=== PATIENT | female | born 1955 | race Caucasian/White ===

== ENCOUNTER → 2017-09-02 | Outpatient (CLI) | payer OTHER ==
[~2017-09-02] MED LIST: ACE3 PO; IBUP200C71 PO; KET10 PO; NONE CURRENTLY; PER PO
== END ==
LOC: MAMO 03:41
PROVIDERS: ATTEND Radiology Radiation Oncology
DX: Z02.9 Encounter for administrative examinations, unspecified (principal)

== ENCOUNTER → 2017-09-13 | Outpatient (CLI) | payer OTHER ==
--- NOTE | 2017-09-14 09:30 | RADIOLOGY IMAGING REPORT ---
FACILITY: [facility] PATIENT NAME: PAUL MARISCAL : [id number] MR: [id number] V: [id number] EXAM DATE: ORDERING PHYSICIAN: JACEY ROUSSEAU TECHNOLOGIST: Karolina Zhong PROCEDURE:BILATERAL DIGITAL SCREENING MAMMOGRAM WITH CAD ASSISTED INTERPRETATION & 3D BREAST TOMOSYNTHYSIS COMPARISON:Prior mammograms dated 09/01/2016, 08/27/2015, 07/30/14, 08/03/13, 01/30/13, 06/14/12 INDICATIONS:SCREENING FINDINGS: Moderately dense heterogeneous fibroglandular tissue is seen throughout the breasts. The parenchymal pattern has remained stable when allowing for difference in mammographic technique & patient positioning. There is an area of postsurgical scarring with architectural distortion in the 9 o'clock position of the right breast that has remained stable. There is no evidence of malignant appearing mass, malignant appearing calcification or secondary sign of malignancy in either breast. DIAGNOSTIC CATEGORY 2--BENIGN FINDING. RECOMMENDATIONS: ROUTINE MAMMOGRAM AND CLINICAL EVALUATION. IMPRESSION: BIRADS 2: Benign finding 1. No significant abnormality is seen Dictated by: Karla Menon M.D. on 09/13/2017 at 13:55 Transcribed by: MARC on 09/13/2017 at 14:18 Approved by: Karla Menon M.D. on 09/14/2017 at 8:38 [facility]
== END ==
LOC: MAMO 01:26
PROVIDERS: ATTEND Radiology Radiation Oncology
DX: Z12.31 Encounter for screening mammogram for malignant neoplasm of breast (principal)
CPT/HCPCS: 77063; 77067

== ENCOUNTER 2017-09-20 12:00 | Outpatient (RCR) | payer OTHER | END 2017-10-04 15:04 | disposition home or self-care (01) | LOC: RAON 12:00 | PROVIDERS: ATTEND Radiology Radiation Oncology | DX: Z85.3 Personal history of malignant neoplasm of breast (principal); Z92.3 Personal history of irradiation | CPT/HCPCS: 99212 ==

== ENCOUNTER 2018-08-24 08:56 | Outpatient (RCR) | payer OTHER ==
[~2018-08-24 08:56] MED LIST changes: +IBUP-136 PO; -IBUP200C71 PO
[2018-08-24 09:20] VITALS: BP 122/88
[2018-08-24] MEDS ORDERED: MULT1TAB64 PO (09:27)
[2018-08-24] MEDS ORDERED: CHOL10005 PO (09:27)
--- NOTE | 2018-08-25 21:22 | ONCOLOGY FOLLOW UP NOTE ---
EVENT DATE: August 24, 2018 CHIEF COMPLAINT Followup for DCIS. HISTORY OF PRESENT ILLNESS Patient is a 63-year-old female who was seen today in one-month followup. 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 She underwent lumpectomy, followed by radiation, completed August 2011. Overall, she feels well. She denies any significant arthralgias. Weight is stable. She would like to exercise more, but feels she is managing without issue. She describes some issues with insomnia and plans to follow up with Dr. Cano about this. 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 Tumor was ER negative, MA negative, HER2/joanna 1+. Underwent wide excision with no residual DCIS identified on 06/29/11. Completed external beam radiation on 08/25/11. MEDICAL HISTORY DCIS May 2011. SURGICAL HISTORY Right lumpectomy 06/29/11. FAMILY HISTORY Mother had colon cancer at age 37. Maternal grandmother had breast cancer. SOCIAL HISTORY Patient is . They have two grown sons. 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 She has never smoked. She drinks occasionally. MEDICATIONS Ibuprofen p.r.n. ALLERGIES No known drug allergies. REVIEW OF SYSTEMS A 12-point review of systems is performed and is negative except as stated above. PHYSICAL EXAMINATION VITAL SIGNS: Blood pressure 122/88, pulse 70, respirations 12, temp 97.3, O2 sat 93%. GENERAL: Patient is a well-developed, well-nourished female in no acute distress. HEAD: Normocephalic, atraumatic. EYES: Sclerae anicteric. MOUTH: Moist mucous membranes. No lesions noted. NECK: Supple. No palpable adenopathy. BREASTS: Status post right lumpectomy with no evidence of recurrence. Left breast is without masses. No palpable axillary adenopathy bilaterally. CARDIOVASCULAR: Heart regular rate, 70 per minute, without murmur, S3, or S4. LUNGS: Clear bilaterally. ABDOMEN: Soft, nontender, with active bowel sounds. No organomegaly. EXTREMITIES: No edema. NEUROLOGIC: Nonfocal. 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 1. Breast cancer. No signs or symptoms of disease recurrence. She generally feels well and has had no new issues. 2. Breast surveillance. Bilateral mammogram on 09/13/17 was BIRADS category 2. This will be repeated at the end of August 2018. 3. Health maintenance. Patient remains very active. Her weight is stable. She understands the importance of continued exercise. 4. Follow up in one year for continued care, earlier if there is a problem. PATRICIA
== END 2018-09-25 12:01 | disposition home or self-care (01) ==
LOC: ONC 08:56
PROVIDERS: ATTEND Radiology Radiation Oncology
DX: Z08 Encounter for follow-up examination after completed treatment for malignant neoplasm (principal); Z85.3 Personal history of malignant neoplasm of breast; Z92.3 Personal history of irradiation; Z17.1 Estrogen receptor negative status [ER-]
CPT/HCPCS: 99213

== ENCOUNTER → 2018-09-18 | Outpatient (CLI) | payer OTHER ==
[~2018-09-18] MED LIST changes: +CHOL10005 PO; +MULT1TAB64 PO
--- NOTE | 2018-09-19 11:15 | RADIOLOGY IMAGING REPORT ---
FACILITY: [facility] PATIENT NAME: PAUL MARISCAL : [id number] MR: [id number] V: [id number] EXAM DATE: ORDERING PHYSICIAN: TARSHA ALONZO TECHNOLOGIST: Karolina Zhong PROCEDURE:BILATERAL DIGITAL SCREENING MAMMOGRAM WITH CAD ASSISTED INTERPRETATION & 3D TOMOSYNTHESIS COMPARISON:Prior mammograms 09/13/17, 09/01/16, 08/27/15, 07/30/14, 08/03/13, 01/30/13. INDICATIONS:SCREENING FINDINGS: The breasts are heterogeneously dense which can obscure small masses. There is an area of postsurgical scaring and architectural distortion in the medial portion of the Right breast. On the Right MLO view in the posterior 1/3 incompletely imaged is an area of architectural distortion for which Spot compression view is recommended. DIAGNOSTIC CATEGORY 0--INCOMPLETE: NEED ADDITIONAL IMAGING EVALUATION. RECOMMENDATIONS: ADDITIONAL MAMMOGRAPHIC VIEWS REQUIRED: RIGHT BREAST. IMPRESSION: BIRADS 0: Incomplete. Additional views of the Right breast recommended as described. Dictated by: Karla Menon M.D. on 09/18/2018 at 11:17 Transcribed by: CRISS on 09/18/2018 at 13:43 Approved by: Karla Menon M.D. on 09/19/2018 at 11:14 [facility]
== END ==
LOC: MAMO 06:53
PROVIDERS: ATTEND Nurse Practitioner
DX: Z12.31 Encounter for screening mammogram for malignant neoplasm of breast (principal); R92.8 Other abnormal and inconclusive findings on diagnostic imaging of breast
CPT/HCPCS: 77063; 77067

== ENCOUNTER → 2018-10-17 | Outpatient (CLI) | payer OTHER ==
--- NOTE | 2018-10-17 17:16 | RADIOLOGY IMAGING REPORT ---
FACILITY: [facility] [place] PATIENT NAME: PAUL MARISCAL : [id number] MR: [id number] V: [id number] EXAM DATE: [id number] ORDERING PHYSICIAN: DAVID BRYAN TECHNOLOGIST: Clair Garcia PROCEDURE:RIGHT DIGITAL DIAGNOSTIC MAMMOGRAM WITH CAD ASSISTED INTERPRETATION & 3D TOMOSYNTHESIS COMPARISON:Prior mammograms 09/18/18, 09/13/17, 09/01/16, 08/27/15, 07/30/14, 08/03/13, 01/30/13, 06/14/12, 12/21/11. INDICATIONS:further evaluation FINDINGS: The Right breast is heterogeneously dense which can obscure small masses. The patient returned for a Spot compression view in the Right MLO projection. The area of architectural distortion posterior to mid nipple line in the posterior 1/3 of the Right breast appeared compressible and now appears similar to prior mammograms. This likely represents postsurgical scaring as this was in a previous biopsy site. DIAGNOSTIC CATEGORY 2--BENIGN FINDING. RECOMMENDATIONS: ROUTINE MAMMOGRAM AND CLINICAL EVALUATION. IMPRESSION: BIRADS 2: Benign finding. Area of postsurgical scaring in the posterior 1/3 Right breast in the Right MLO view appeared compressible and similar to the prior older mammograms. Dictated by: Karla Menon M.D. on 10/17/2018 at 11:55 Transcribed by: CRISS on 10/17/2018 at 13:33 Approved by: Karla Menon M.D. on 10/17/2018 at 17:14 [facility]
== END ==
LOC: MAMO 01:57
PROVIDERS: ATTEND Family Medicine
DX: R92.2 Inconclusive mammogram (principal)
CPT/HCPCS: 77061; 77065